=== PATIENT | female | born 1995 | race Caucasian/White ===

== ENCOUNTER 2018-03-06 14:20 | Emergency (ER) | payer OTHER, SELFPAY ==
[2018-03-06 14:47] LABS: Bilirubin Negative (Negative); Blood, Urine Negative (Negative); Clarity Slightly Cloudy (Clear); Glucose, Urine (Dipstick) Negative (Negative); Leukocyte Moderate (Negative); Nitrite Positive (Negative); Pregnancy Test - Urine (BHCG) Negative (Negative); Pregu Control Background? CLEAR/WHITE (CLR/WHITE); Pregu Control Bar Appear? YES (CONTROL BAR); Protein, Urine (Dipstick) Negative (Neg-Trace); Specific Gravity 1.015 (1.002-1.036); Specific Gravity, Urine 1.015 (1.005-1.030); Urobilinogen 0.2 mg/dL (0.2-1.0); pH, Urine 8.5 (5.0-9.0)
[2018-03-06 14:49] LABS: Bacteria/HPF 3+ HPF (None Seen); RBC/HPF 0-3 HPF (0-3)
== END 2018-03-06 15:16 | disposition home or self-care (01) ==
LOC: SCSER 14:20
DX: N39.0 Urinary tract infection, site not specified (principal); R05 Cough; J45.909 Unspecified asthma, uncomplicated; Z86.711 Personal history of pulmonary embolism
CPT/HCPCS: 81003; 81015; 81025; 99283